=== PATIENT | male | born 1990 | race Caucasian/White ===

== ENCOUNTER 2024-04-22 10:00 | Outpatient (CLI) | payer OTHER ==
[2024-04-22 11:06] LABS: #Basophils 0.03 10x3/uL (0.0-0.2); #Eosinophils 0.27 10x3/uL (0.0-0.5); #Monocytes 0.79 10x3/uL (0.0-1.1); %Basophils 0.4 % (0.0-2.0); %Eosinophils 3.7 % (0.0-6.0); %Lymphocytes 30.4 % (18.0-47.0); %Monocytes 10.7 % (0.0-10.0); %Neutrophils 54.4 % (40.0-75.0); Hematocrit 44.7 % (38.8-50.0); Hemoglobin 15.9 g/dL (13.5-17.5); Mean Corpuscular HGB CONC 35.6 g/dL (32.0-36.0); Mean Corpuscular Hemoglobin 30.1 pg (27.0-33.0); Mean Corpuscular Volume 84.5 fL (81.2-95.1); Mean Platelet Volume 9.3 fL (7.4-10.4); Platelet Count 212 10x3/uL (150-450); RBC Distribution Width 11.6 % (11.5-14.5); Red Blood Cell (RBC) Count 5.29 10x6/uL (4.32-5.72); White Blood Cell (WBC) Count 7.4 10x3/uL (3.5-10.5)
[2024-04-22 11:25] LABS: Anion Gap 13 mmol/L (10-20); BUN (Urea Nitrogen) 12 mg/dL (8.9-20.6); Calc. Creatinine Clearance 0 mL/min (70-130); Calcium 9.2 mg/dL (7.8-10.44); Carbon Dioxide 26 mmol/L (22-29); Chloride 105 mmol/L (98-107); Estimated GFR 90; Glucose 97 mg/dL (70-105); Potassium 4.3 mmol/L (3.5-5.1); Sodium 140 mmol/L (136-145)
== END 2024-04-22 10:01 | disposition home or self-care (01) ==
LOC: CSHLAB 10:00
PROVIDERS: ATTEND Surgery
DX: Z01.812 Encounter for preprocedural laboratory examination (principal); K40.90 Unilateral inguinal hernia, without obstruction or gangrene, not specified as recurrent
CPT/HCPCS: 80048; 85025

== ENCOUNTER 2024-04-26 06:14 | Day surgery (SDC) | payer OTHER ==
[2024-04-22 10:19] VITALS: BMI 25.4
[2024-04-26] MEDS ORDERED: Rocuronium Bromide 10 MG/ML (10ML VIAL) ONE (07:20)
[2024-04-26] MEDS ORDERED: SUGAMMADEX SODIUM 200 MG/2 ML VIAL ONE (07:20)
[2024-04-26] MEDS ORDERED: fentaNYL 50 mcg/mL 1 mL Vial ONE ×3 (07:20→10:03)
[2024-04-26] MEDS ORDERED: Ondansetron PF 4 MG/2 ML Vial ONE (07:20)
[2024-04-26] MEDS ORDERED: PROPOFOL 20 ML ONE (07:20)
[2024-04-26] MEDS ORDERED: Lidocaine 2% PF 5 ML VIAL ONE (07:20)
[2024-04-26] MEDS ORDERED: Dexamethasone 20 MG/5 ML VIAL ONE (07:20)
[2024-04-26] MEDS ORDERED: CEFAZOLIN 2 GM VIAL ONE (07:21)
[2024-04-26] MEDS ORDERED: Bupivacaine/Epinephrine 0.25% 30 ML VIAL ONE (07:21)
[2024-04-26] MEDS ORDERED: Ketorolac Tromethamine 30 MG (1 mL) VIAL ONE (07:22)
[2024-04-26] MEDS ORDERED: HYDROmorphone 0.5 MG/0.5 ML SYRINGE ONE (07:23)
[2024-04-26] MEDS ORDERED: oxyCODONE 5 MG TAB ONE (10:28)
[2024-04-26] MEDS ORDERED: Oxybutynin 5 MG TAB ONE (11:36)
== END 2024-04-26 11:05 | disposition home or self-care (01) ==
LOC: CSHSDC 06:14
PROVIDERS: ATTEND Surgery
PROC: 0YUA4JZ Supplement Bilateral Inguinal Region with Synthetic Substitute, Percutaneous Endoscopic Approach (ICD-10-PCS; principal; 2024-04-26)
DX: K40.20 Bilateral inguinal hernia, without obstruction or gangrene, not specified as recurrent (principal); M47.816 Spondylosis without myelopathy or radiculopathy, lumbar region; E78.5 Hyperlipidemia, unspecified; Z79.899 Other long term (current) drug therapy; Z90.89 Acquired absence of other organs; Z98.890 Other specified postprocedural states; Z87.891 Personal history of nicotine dependence; Z88.5 Allergy status to narcotic agent
CPT/HCPCS: C1781; J1100; J1885; J2405; J2704; J3010; S2900